=== PATIENT | male | born 1995 | race Caucasian/White ===

== ENCOUNTER 2019-02-13 18:20 | Emergency (ER) | payer OTHER ==
[~2019-02-13] VITALS: Ht 172.7 cm; Wt 66.5 kg
[2019-02-13 18:29] VITALS: Ht 172.7 cm; Wt 66.5 kg
[2019-02-13] MEDS ORDERED: BACITRACIN/POLYMYXIN 28.35 GM OINT TOP ONE (20:00)
[2019-02-13] MEDS ORDERED: IBUPROFEN 600 MG TAB PO ONE (20:00)
[2019-02-13] MEDS ORDERED: DIPHTH/TET/ACEL PERTUSS (ADULT) 0.5 ML VIAL IM* ONE (20:00)
[2019-02-13] MEDS ORDERED: IBUP-1542 PO (21:49)
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
[2019-02-13 22:31] VITALS: BP 134/79; PULSE 98; RESP 18
== END 2019-02-13 22:32 | disposition home or self-care (01) ==
LOC: FTE 18:20
DX: S62.001A Unspecified fracture of navicular [scaphoid] bone of right wrist, initial encounter for closed fracture (principal); S80.212A Abrasion, left knee, initial encounter; S50.311A Abrasion of right elbow, initial encounter; V13.4XXA Pedal cycle driver injured in collision with car, pick-up truck or van in traffic accident, initial encounter
CPT/HCPCS: 29125; 73030; 73080; 73110; 73564; 90471; 90715; Z7502; Z7610

== ENCOUNTER 2019-05-07 12:02 | Emergency (ER) | payer OTHER ==
[~2019-05-07] VITALS: Ht 172.7 cm; Wt 63.6 kg
[~2019-05-07 12:02] MED LIST: CYCL10TA7 PO; HYDR-4011 PO; IBUP-1542 PO; NAPR-985 PO
[2019-05-07 12:05] VITALS: BP 123/72; PULSE 59; RESP 17; Ht 172.7 cm; Wt 63.6 kg
[2019-05-07] MEDS ORDERED: ONDANSETRON (ODT) 4 MG TAB ODT STA (12:16)
[2019-05-07] MEDS ORDERED: HYDROCODONE/APAP (5/325) TAB PO ONE (12:30)
== END 2019-05-07 14:20 | disposition home or self-care (01) ==
LOC: FTE 12:02
DX: M25.511 Pain in right shoulder (principal); M25.521 Pain in right elbow; M25.531 Pain in right wrist; M25.561 Pain in right knee; M79.671 Pain in right foot; M25.562 Pain in left knee; V13.4XXA Pedal cycle driver injured in collision with car, pick-up truck or van in traffic accident, initial encounter
CPT/HCPCS: 73030; 73080; 73110; 73562; 73564; 73630; Z7610